=== PATIENT | male | born 1990 | race African-American/Black ===

== ENCOUNTER 2016-07-07 11:56 | Emergency (ER) | payer SELFPAY ==
[2016-07-07 12:02] VITALS: BP 119/69; PULSE 68; TEMP 97.9; BMI 24.9
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
== END 2016-07-07 15:10 | disposition home or self-care (01) ==
LOC: FER 11:56
PROC: 2W3RX1Z Immobilization of Left Lower Leg using Splint (ICD-10-PCS; principal; 2016-07-07)
DX: S86.892A Other injury of other muscle(s) and tendon(s) at lower leg level, left leg, initial encounter (principal); X58.XXXA Exposure to other specified factors, initial encounter; Y93.9 Activity, unspecified; Y92.9 Unspecified place or not applicable; Y99.9 Unspecified external cause status; Z87.828 Personal history of other (healed) physical injury and trauma; Z87.891 Personal history of nicotine dependence
CPT/HCPCS: 73590-TC-LT; 99282-25

== ENCOUNTER 2019-05-26 22:58 | Emergency (ER) | payer OTHER ==
[2019-05-26 23:08] VITALS: BP 118/65; PULSE 78; TEMP 98.5; BMI 26.6
[2019-05-26] MEDS ORDERED: KETOROLAC TROMETHAMINE 60 MG/2 ML VIAL IM ONE (23:42)
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
[2019-05-26] MEDS ORDERED: KETOROLAC TROMETHAMINE 60 MG/2 ML VIAL ONE (23:44)
== END 2019-05-26 23:50 | disposition home or self-care (01) ==
LOC: FER 22:58
PROC: 3E0233Z Introduction of Anti-inflammatory into Muscle, Percutaneous Approach (ICD-10-PCS; principal; 2019-05-26)
DX: J20.8 Acute bronchitis due to other specified organisms (principal); F17.210 Nicotine dependence, cigarettes, uncomplicated
CPT/HCPCS: 99284-25

== ENCOUNTER 2020-05-25 20:36 | Emergency (ER) | payer OTHER ==
[2020-05-25 20:42] VITALS: BP 120/33; PULSE 61; TEMP 98.4; BMI 26.6
[2020-05-25] MEDS ORDERED: ACETAMINOPHEN 500 MG TABLET (FP) PO ONE (21:35)
[2020-05-25] MEDS ORDERED: ACETAMINOPHEN 325 MG TABLET (FP) ONE (21:41)
[2020-05-25] MEDS ORDERED: oxyCODONE HCL 5 MG TABLET PO ONE (22:48)
[2020-05-25] MEDS ORDERED: oxyCODONE HCL 5 MG TABLET ONE (23:09)
== END 2020-05-26 00:31 | disposition home or self-care (01) ==
LOC: JER 20:36
DX: S82.54XA Nondisplaced fracture of medial malleolus of right tibia, initial encounter for closed fracture (principal)
CPT/HCPCS: 73610-TC-RT-FY; 73630-TC-RT-FY; 99283-25

== ENCOUNTER 2020-07-21 12:05 | Emergency (ER) | payer OTHER ==
[2020-07-21 12:17] VITALS: BP 102/59; PULSE 58; TEMP 98.1; BMI 25.7
== END 2020-07-21 13:05 | disposition home or self-care (01) ==
LOC: EDSEX 12:05 → FER 12:05
DX: S50.02XA Contusion of left elbow, initial encounter (principal); S50.312A Abrasion of left elbow, initial encounter
CPT/HCPCS: 73070-TC-LT-FY; 99284-25

== ENCOUNTER 2022-12-28 15:47 | Emergency (ER) | payer OTHER ==
[2022-12-28 15:55] VITALS: BP 104/55; PULSE 57; RESP 16; TEMP 97.9; BMI 24.9
[2022-12-28] MEDS ORDERED: METOCLOPRAMIDE HCL INJECTION 10 MG/2 ML VIAL IM ONE (16:20)
[2022-12-28] MEDS ORDERED: ACETAMINOPHEN 500 MG TABLET (FP) PO ONE (16:20)
[2022-12-28] MEDS ORDERED: METOCLOPRAMIDE HCL INJECTION 10 MG/2 ML VIAL ONE (16:37)
[2022-12-28] MEDS ORDERED: ACETAMINOPHEN 325 MG TABLET (FP) ONE (16:37)
== END 2022-12-28 18:52 | disposition home or self-care (01) ==
LOC: JER 15:47
PROC: 3E023GC Introduction of Other Therapeutic Substance into Muscle, Percutaneous Approach (ICD-10-PCS; principal; 2022-12-28)
DX: S02.2XXA Fracture of nasal bones, initial encounter for closed fracture (principal); S09.93XA Unspecified injury of face, initial encounter; R51.9 Headache, unspecified; R53.1 Weakness; R20.2 Paresthesia of skin; R11.2 Nausea with vomiting, unspecified; H53.149 Visual discomfort, unspecified; W20.8XXA Other cause of strike by thrown, projected or falling object, initial encounter; Y93.H3 Activity, building and construction; Y92.69 Other specified industrial and construction area as the place of occurrence of the external cause
CPT/HCPCS: 70450-TC; 70486-TC; 99284-25

== ENCOUNTER 2023-11-11 19:18 | Emergency (ER) | payer OTHER ==
[2023-11-11 19:27] VITALS: BP 95/61; PULSE 61; RESP 16; TEMP 98.2; BMI 26.4
[2023-11-11] MEDS: IBUPROFEN 600 MG TABLET (FP) PO ONE (19:54)
[2023-11-11] MEDS ORDERED: IBUPROFEN 600 MG TABLET (FP) PO ONE (19:54)
== END 2023-11-11 19:56 | disposition home or self-care (01) ==
LOC: FER 19:18
DX: S29.012A Strain of muscle and tendon of back wall of thorax, initial encounter (principal); X50.0XXA Overexertion from strenuous movement or load, initial encounter
CPT/HCPCS: 99283-25